=== PATIENT | female | born 1960 | race Caucasian/White ===

== ENCOUNTER 2021-12-15 11:44 | Emergency (ER) | payer OTHER ==
[~2021-12-15] VITALS: Ht 172.7 cm; Wt 111.1 kg
[2021-12-15 11:49] VITALS: BP_SYST 157
--- NOTE | 2021-12-15 11:54 | NUR ---
Pt BIBA BLS coming from home c/o falling outside of home and hurting right hip and right wrist rates pain 9/10 non-radiating. Skin intact. A&Ox4. VSS. Denies n/v. No chest pain and no sob. Did not hit head. No LOC. Allergic to Tetracycline. Hx of DM and HTN. VSS. [facility] awaiting bed to become available.
--- NOTE | 2021-12-15 12:15 | NUR ---
ER at bedside examining patient.
[2021-12-15] MEDS: MORPHINE 4 MG INJ. 4 MG/ML VIAL IM ONE ×3 (13:12→16:49)
--- NOTE | 2021-12-15 13:20 | NUR ---
X-Ray being done at bedside.
[2021-12-15] MEDS ORDERED: HYDR-3917 PO ×2 (13:41→17:22)
[2021-12-15] MEDS ORDERED: IBUP-1969 PO ×2 (13:41→17:22)
--- NOTE | 2021-12-15 13:55 | NUR ---
Patient transported to radiology via gurney, accompanied by rn radiology.
[2021-12-15] MEDS: fentaNYL CITRATE/PF 100 MCG/2 ML AMP IM ONE (15:13)
--- NOTE | 2021-12-15 16:50 | NUR ---
[facility] TO SPEAK TO DR. MORALEZ REGARDING PT STATUS.
[2021-12-15 17:27] VITALS: BP_SYST 148
--- NOTE | 2021-12-15 17:28 | NUR ---
Patient given written and verbal discharge instructions and verbalizes understanding. ER MD discussed with patient the results and treatment provided. Patient in stable condition. ID arm band removed. Rx of Ibuprofen & [place] given. Patient educated on pain management and to follow up with PMD. Pain Scale 0/10. Opportunity for questions provided and answered. Medication side effect fact sheet provided.
== END 2021-12-15 17:28 | disposition home or self-care (01) ==
LOC: SED 11:44
DX: S52.501A Unspecified fracture of the lower end of right radius, initial encounter for closed fracture (principal); S70.02XA Contusion of left hip, initial encounter; S30.0XXA Contusion of lower back and pelvis, initial encounter; Z88.8 Allergy status to other drugs, medicaments and biological substances; Z79.899 Other long term (current) drug therapy; W18.39XA Other fall on same level, initial encounter; Y93.89 Activity, other specified; Y92.89 Other specified places as the place of occurrence of the external cause; Y99.8 Other external cause status
CPT/HCPCS: 29125; 72192; 72220; 73110; 73502; 76376; 96372; 99284; J2270